=== PATIENT | male | born 1950 | race Hispanic/Latino ===

== ENCOUNTER 2019-07-25 08:51 | Inpatient (IN) | payer OTHER ==
[~2019-07-25] VITALS: Ht 180.3 cm; Wt 75.9 kg
[2019-07-25] VITALS (13 sets, daily range): BP systolic 86–134; BP diastolic 51–86
--- NOTE | 2019-07-25 09:40 | NUR ---
ADMISSION PT RECVD FROM [facility] [place] VIA EMS. A/O X 3. SPS SPEAKING ONLY. NO SOB. NO DISTRESS NOTED. C/O OF CHEST PAIN 06/04. DESCRIBES IT PAIN TO CHEST, POINTS TO "HEART AREA." DENIES CHEST PRESSURE. DENIES RADIATION TO JAW OR LEFT ARM. MD TO BE NOTIFIED. TELE: SB 50s. DENIES N/V AND/OR DIARRHEA. NPO STATUS REINFORCED. @ THIS TIME PLAN FOR DR MCHUGH TO DO C TODAY. PROCEDURE EXPLAINED TO PT. QUESTIONS ENCOURAGED & CLARIFIED. PROCEDURE TO BE REVIEWED BY DR MCHUGH. ORIENTED TO HOSPITAL RM. INSTRUCTED TO CALL FOR ASSISTANCE. CALL EDWARD W/IN REACH.
--- NOTE | 2019-07-25 09:55 | NUR ---
MD VISIT DR DELGADO IN TO SEE PT. UPDATED ON PT'S STATUS. ORDERS RECVD & ENTERED. PT TO HAVE [facility] T[facility]. DIET TO BE RESUMED. PT & FAMILY UPDATED ON PLAN OF CARE.
[2019-07-25] MEDS ORDERED: TICAGRELOR 90 MG TABLET PO SCH (10:15)
[2019-07-25] MEDS ORDERED: ASPIRIN 81MG TAB.CHEW PO SCH (10:15)
[2019-07-25] MEDS ORDERED: NITROGLYCERIN 0.4 MG SL TAB SL PRN ×2 (10:15→11:45)
[2019-07-25] MEDS ORDERED: ENOXAPARIN SODIUM 1 MG/KG SQ SCH ×2 (10:15→21:00)
[2019-07-25] MEDS ORDERED: METOPROLOL TARTRATE 25 MG TAB PO SCH ×3 (10:15→21:00)
[2019-07-25] MEDS ORDERED: SODIUM CHLORIDE 0.9% 500ML 500 ML IV SCH (10:29)
[2019-07-25] MEDS ORDERED: LISINOPRIL 2.5 MG TABLET PO SCH (10:30)
[2019-07-25] MEDS ORDERED: ISOSORBIDE MONO 30MG TAB SR PO SCH (10:30)
[2019-07-25] MEDS ORDERED: ENOXAPARIN SODIUM 80 MG/0.8 ML SQ SCH (10:30)
[2019-07-25 11:06] LABS: POTASSIUM 4.2 mmol/L (3.5-5.1)
[2019-07-25 11:21] LABS: HEMATOCRIT 42.6 % (42-54); MEAN CORPUSCULAR HEMOGLOBIN 33.7 pg (27.0-33.0); MEAN CORPUSCULAR HGB CONC 34.3 g/dL (32.0-36.0); MEAN CORPUSCULAR VOLUME 98.4 fL (79-99); RED BLOOD CELL COUNT(AUTO) 4.33 MIL/uL (4.50-6.20); RED CELL DISTRIBUTION WIDTH 11.9 % (11.0-15.5); WHITE BLOOD COUNT (AUTO) 6.5 K/uL (4.8-10.8)
[2019-07-25 11:24] LABS: INR 0.92 (0.85-1.15); PARTIAL THROMBOPLASTIN TIME 30.3 SEC (26.3-35.5)
[2019-07-25] MEDS: SODIUM CHLORIDE 0.9% 1000ML 1,000 ML IV SCH (11:44)
[2019-07-25] MEDS ORDERED: ACETAMINOPHEN 325 MG TAB PO PRN ×2 (11:45)
[2019-07-25] MEDS ORDERED: DIPHENHYDRAMINE HCL 25 MG CAPSULE PO PRN (11:45)
[2019-07-25] MEDS ORDERED: DiphenhydrAMINE HCL 50 MG/ML VIAL IV PRN (11:45)
[2019-07-25] MEDS ORDERED: ONDANSETRON HCL 4 MG/2 ML VIAL IV PRN (11:45)
[2019-07-25] MEDS ORDERED: LACTULOSE 20 GM/30 ML UDCUP PO PRN (11:45)
[2019-07-25] MEDS ORDERED: MAG HYDROX/AL HYDROX/SIMETH ES 30 ML SUSP UDCUP PO PRN (11:45)
[2019-07-25] MEDS ORDERED: GUAIFENESIN-DM 200/20 MG 10 ML PO PRN (11:45)
[2019-07-25] MEDS ORDERED: MORPHINE SULFATE 2 MG/ML 1ML SYG IV PRN (11:45)
--- NOTE | 2019-07-25 12:32 | NUR ---
NOTIFICATION TROPONIN 17.61. DR MCHUGH NOTIFIED. PT RESTING @ THIS TIME. NO SOB. NO DISTRESS NOTED. TELE: SB. WHEN PT WOKEN UP, PT STATES HAVING CHEST PAIN BUT LESS THAN EARLIER. 05/04. DR MCHUGH OF PT'S STATUS. ORDERE VD TP KEEP PT NPO OF NOW, POSS LHC LATER TODAY.
--- NOTE | 2019-07-25 14:43 | NUR ---
STATUS CALL RECEIVED FROM DR MCHUGH, PT TO HAVE LHC TODAY. RADIOLOGY ORDERLY TEAM TO BE CALLED. PT & FAMILY INFORMED OF MD'S PLAN FOR LHC SHORTLY. CONSENT FOR LHC/PTCA/STENT SIGNED EARLIER BY PT.
[2019-07-25] MEDS ORDERED: HEPARIN SODIUM 1000UNIT/ML 10ML VIAL ONE (15:17)
[2019-07-25] MEDS ORDERED: NICARDIPINE HCL 25 MG/10 ML ML IV ONE (15:17)
[2019-07-25] MEDS ORDERED: LIDOCAINE HCL 2% 20ML ONE (15:18)
[2019-07-25] MEDS ORDERED: FENTANYL CITRATE PF 50 MCG/1 ML 2ML VIAL ONE (15:18)
[2019-07-25] MEDS ORDERED: IOHEXOL-350 50ML VIAL IV ONE (15:18)
[2019-07-25] MEDS ORDERED: MIDAZOLAM HCL 1 MG/ML 2ML VIAL ONE (15:18)
[2019-07-25] MEDS ORDERED: IOHEXOL 350 MG/ML 100ML INFUS..BTL IV ONE (15:18)
[2019-07-25] MEDS ORDERED: NITROGLYCERIN 2 MG/VIAL VIAL IV ONE (15:25)
--- NOTE | 2019-07-25 15:25 | NUR ---
STATUS PT TAKEN TO [facility]ING [facility]ACHINE [facility]PERATOR VIA BED FOR [facility] BY DR DELGADO. TELE PAZ REMOVED. PT'S CELL PHONE & EYE GLASSES LEFT BEHIND IN RM [phone]. DOOR TO RM CLOSED.
[2019-07-25] MEDS ORDERED: ATROPINE SULFATE 0.1 MG/ML 10 ML SYG IVP ONE (16:29)
[2019-07-25] MEDS ORDERED: DOPAMINE HCL 400 MG/D5%-WATER 0 ML IV ONE (16:29)
[2019-07-25] MEDS ORDERED: PHENYLEPHRINE HCL 10 MG/ML 1ML VIAL IV ONE (16:32)
[2019-07-25] MEDS ORDERED: SODIUM CHLORIDE 0.9% 1000ML 1,000 ML IV SCH (17:00)
--- NOTE | 2019-07-25 17:20 | NUR ---
STATUS PT BACK FROM [facility] VIA BED. S/P LHC W/STENT TO LAD. RT GROIN PER CLOSE, DSG DRY & INTACT. NO BLEEDING, NO HEMATOMA NOTED. PUNCTURE SITE SOFT, NON-TENDER. (+) STRONG BILATERAL PEDAL PULSES. BLE PINK & WARM TO TOUCH. DENIES INCISIONAL PAIN. DENIES CHEST PAIN OR DISCOMFORT @ THIS TIME. PT INFORMED TO MAINTAIN BEDREST X 3 HRS. PT TO RCV 0.9% NACL @ 100 ML/HR X 4HRS.
--- NOTE | 2019-07-25 18:30 | NUR ---
STATUS RT GROIN ASSESSED. DSG (+) FOR SLIGHT BLEEDING, COLOR RED. DSG REMOVED. PUNCTURE SITE INTACT. NO ACTIVE BLEEDING NOTED. NO HEMATOMA NOTED. (+) STRING BILATERAL PEDAL PULSES. BLE PINK & WARM TO TOUCH. MANUAL PRESSURE APPLIED TO RT GROIN X 10 MIN. GAUZE & OPSITE APPLIED. WILL CONTINUE TO MONITOR.
[2019-07-25] MEDS: ATORVASTATIN CALCIUM 40 MG TABLET PO SCH (20:48)
[2019-07-25] MEDS: TICAGRELOR 90 MG TABLET PO SCH (20:48)
[2019-07-25] MEDS: METOPROLOL TARTRATE 25 MG TAB PO SCH (20:48)
[2019-07-25] MEDS ORDERED: FAMOTIDINE/PF 20 MG/2 ML VIAL IV SCH (21:00)
[2019-07-26 04:00] VITALS: BP 98/50
[2019-07-26 05:27] LABS: BASOPHILS % (AUTO) 0.3 % (0.0-5.0); EOSINOPHILS % (AUTO) 0.3 % (0.0-8.0); HEMATOCRIT 36.1 % (42-54); LYMPHOCYTES % (AUTO) 21.9 % (21.0-51.0); MEAN CORPUSCULAR HEMOGLOBIN 33.2 pg (27.0-33.0); MEAN CORPUSCULAR HGB CONC 33.8 g/dL (32.0-36.0); MEAN CORPUSCULAR VOLUME 98.1 fL (79-99); MONOCYTES % (AUTO) 9.2 % (3.0-13.0); NEUTROPHILS % (AUTO) 68.1 % (40.0-77.0); PLATELET COUNT (AUTO) 137 K/uL (130-400); RED BLOOD CELL COUNT(AUTO) 3.68 MIL/uL (4.50-6.20); RED CELL DISTRIBUTION WIDTH 11.9 % (11.0-15.5); WHITE BLOOD COUNT (AUTO) 6.1 K/uL (4.8-10.8)
[2019-07-26] MEDS: SODIUM CHLORIDE 0.9% 1000ML 1,000 ML IV SCH ×2 (05:28→21:04)
[2019-07-26 05:39] LABS: BILIRUBIN,TOTAL 1.1 mg/dL (0.2-1.0); POTASSIUM 3.9 mmol/L (3.5-5.1); TOTAL PROTEIN, SERUM 5.7 g/dL (6.0-8.3)
[2019-07-26 07:55] VITALS: BP 92/59
[2019-07-26] MEDS: ISOSORBIDE MONO 30MG TAB SR PO SCH (08:51)
[2019-07-26] MEDS: LISINOPRIL 2.5 MG TABLET PO SCH (08:51)
[2019-07-26] MEDS: METOPROLOL TARTRATE 25 MG TAB PO SCH ×2 (08:53→21:04)
[2019-07-26] MEDS: ASPIRIN 81MG TAB.CHEW PO SCH (08:54)
[2019-07-26] MEDS: TICAGRELOR 90 MG TABLET PO SCH ×2 (08:54→21:04)
[2019-07-26] MEDS: FAMOTIDINE 20MG TAB 20 MG TAB PO SCH ×2 (08:54→21:04)
[2019-07-26 12:00] VITALS: BP 99/68
[2019-07-26 16:00] VITALS: BP 125/74
--- NOTE | 2019-07-26 17:32 | NUR ---
D/C PLAN CM spoke to pt regarding d/c planning. Pt is [place] and lives with spouse. States spouse can assist in care if needed. Denies having any home health or provider services. Plan to home. CM provided patient with [facility] chavez. No other questions or concerns verbalized. CM to f/u. Addendum: 07/26/19 at 1734 by SATNAM LUO CM Amended: Links added.
[2019-07-26 20:24] VITALS: BP 118/60
[2019-07-26] MEDS: ATORVASTATIN CALCIUM 40 MG TABLET PO SCH (21:04)
[2019-07-26 23:29] VITALS: BP 111/72
[2019-07-27 03:34] VITALS: BP 115/78
[2019-07-27 06:09] LABS: BASOPHILS % (AUTO) 0.4 % (0.0-5.0); EOSINOPHILS % (AUTO) 0.8 % (0.0-8.0); HEMATOCRIT 38.7 % (42-54); LYMPHOCYTES % (AUTO) 22.3 % (21.0-51.0); MEAN CORPUSCULAR HEMOGLOBIN 33.1 pg (27.0-33.0); MEAN CORPUSCULAR HGB CONC 34.1 g/dL (32.0-36.0); NEUTROPHILS % (AUTO) 65.3 % (40.0-77.0); PLATELET COUNT (AUTO) 141 K/uL (130-400); RED BLOOD CELL COUNT(AUTO) 3.99 MIL/uL (4.50-6.20); RED CELL DISTRIBUTION WIDTH 11.6 % (11.0-15.5); WHITE BLOOD COUNT (AUTO) 5.3 K/uL (4.8-10.8)
[2019-07-27 06:25] LABS: BILIRUBIN,TOTAL 1.2 mg/dL (0.2-1.0); CREATININE 1.2 mg/dL (0.5-1.5); TOTAL PROTEIN, SERUM 5.9 g/dL (6.0-8.3)
[2019-07-27 08:02] VITALS: BP_SYST 122; BP_SYST 179; BP_DIAS 74; BP_DIAS 79
[2019-07-27] MEDS: FAMOTIDINE 20MG TAB 20 MG TAB PO SCH (09:09)
[2019-07-27] MEDS: LISINOPRIL 2.5 MG TABLET PO SCH (09:09)
[2019-07-27] MEDS: METOPROLOL TARTRATE 25 MG TAB PO SCH (09:10)
[2019-07-27] MEDS: TICAGRELOR 90 MG TABLET PO SCH (09:11)
[2019-07-27] MEDS: ISOSORBIDE MONO 30MG TAB SR PO SCH (09:11)
[2019-07-27] MEDS: ASPIRIN 81MG TAB.CHEW PO SCH (09:11)
[2019-07-27 11:26] VITALS: BP 99/63
[2019-07-27] MEDS: SODIUM CHLORIDE 0.9% 1000ML 1,000 ML IV SCH (11:30)
[2019-07-27 15:22] VITALS: BP 99/59
[2019-07-27] MEDS ORDERED: ATOR40TA69 PO (17:21)
[2019-07-27] MEDS ORDERED: LISI2.5T2 PO (17:21)
[2019-07-27] MEDS ORDERED: ASPI-1005 PO (17:21)
[2019-07-27] MEDS ORDERED: TICA90TA PO (17:21)
[2019-07-27] MEDS ORDERED: Isosorbide Mono 30MG Tab Sr PO (17:21)
[2019-07-27] MEDS ORDERED: METO25 PO (17:21)
--- NOTE | 2019-07-27 18:34 | NUR ---
PATIENT DISCHARGE PATIENT DISCHARGE, IV DISCONTINUED CATHLON INTACT BLEEDING CONTROLLED, PATIENT TOLERATED WITHOUT INCIDENT.
== END 2019-07-27 18:45 | disposition home or self-care (01) | DRG 246 ==
LOC: 4CH 09:29
PROVIDERS: ADMIT Family Medicine; ATTEND Family Medicine
PROC: 027034Z Dilation of Coronary Artery, One Artery with Drug-eluting Intraluminal Device, Percutaneous Approach (ICD-10-PCS; principal; 2019-07-25)
PROC: 4A023N7 Measurement of Cardiac Sampling and Pressure, Left Heart, Percutaneous Approach (ICD-10-PCS; 2019-07-25)
PROC: B2111ZZ Fluoroscopy of Multiple Coronary Arteries using Low Osmolar Contrast (ICD-10-PCS; 2019-07-25)
DX: I21.4 Non-ST elevation (NSTEMI) myocardial infarction (principal); I50.33 Acute on chronic diastolic (congestive) heart failure; I47.2 Ventricular tachycardia; Z83.3 Family history of diabetes mellitus; Z82.49 Family history of ischemic heart disease and other diseases of the circulatory system; I11.0 Hypertensive heart disease with heart failure
CPT/HCPCS: 36415; 80048; 80053; 82948; 84484; 85025; 85027; 85347; 85610; 85730; 93458; 94760; 99156; 99157; A4606; C1725; C1760; C1887; C1894; C9600; C9606; G0378; J0461; J1265; J1644; J1650; J2250; J2370; J3010; J3490; Q9967